=== PATIENT | male | born 1940 | race Caucasian/White ===

== ENCOUNTER 2017-08-03 20:47 | Emergency (ER) | payer OTHER, MEDICARE ==
[~2017-08-03] VITALS: Ht 180.3 cm; Wt 81.6 kg
[~2017-08-03 20:47] MED LIST: AMANTADINE HCL100 M1 PO; ANT12.5 PO; ASA PO; ASPIRIN EC325 M1 PO; CELEXA10 MG PO; CYMBALTA30 M1 PO; DUR75P TOP; FENTANYL 50 MCG/ML; FLO4 PO; FLOMAX0.4 MG PO; GABAPENTIN100 M2 PO; METHADONE10 M1 PO; MIDODRINE HCL2.5 M1 PO; MORPHINE SULFAT15 MG; NEXIUM40 MG PO; TRAZODONE50 M1 PO; ZOS3PM IV
[2017-08-03 20:57] VITALS: Ht 180.3 cm; Wt 81.6 kg
[2017-08-03 22:26] LABS: BASOPHIL % 0.5 % (0-2); PLATELET COUNT 204 x10^3mcL (130-400); RED CELL DISTRIBUTION WIDTH 13.9 % (11.5-14.5)
[2017-08-03 22:53] LABS: CALCIUM 8.3 mg/dL (8.5-10.1); CARBON DIOXIDE 24.7 mmol/L (21-32); CHLORIDE SERUM 100 mmol/L (98-107); CREATININE SERUM 1.3 mg/dL (0.7-1.3); GLUCOSE SERUM 136 mg/dL (74-106); POTASSIUM SERUM 3.9 mmol/L (3.5-5.1); SODIUM SERUM 133 mmol/L (136-145)
[2017-08-03 22:58] LABS: T3 TOTAL 0.95 ng/mL
[2017-08-03 23:00] LABS: ALKALINE PHOSPHATASE 71 U/L (46-116); ALT/SGPT 18 U/L (16-63); AST/SGOT 9 U/L (15-37); BILIRUBIN TOTAL 0.3 mg/dL (0.20-1.00); CHOLESTEROL 151 mg/dL (<200); HDL CHOLESTEROL 42 mg/dL (40-60)
[2017-08-03 23:02] LABS: ALBUMIN 3.1 g/dL (3.4-5.0); TOTAL PROTEIN, SERUM 6.1 g/dL (6.4-8.2)
[2017-08-03 23:07] LABS: FREE T4 1.18 ng/dL (0.76-1.46); FREE THYROXINE INDEX 2.4 ug/dL (1.4-4.5); T4(THYROXINE) 6.6 ug/dL (4.7-13.3)
[2017-08-04 01:08] VITALS: BP 117/74
== END 2017-08-04 01:08 | disposition home or self-care (01) ==
LOC: ED 20:47
PROVIDERS: Emergency Medicine
DX: I95.9 Hypotension, unspecified (principal); G62.9 Polyneuropathy, unspecified; J45.909 Unspecified asthma, uncomplicated; Z88.2 Allergy status to sulfonamides; Z95.5 Presence of coronary angioplasty implant and graft; Z88.5 Allergy status to narcotic agent; T40.605A Adverse effect of unspecified narcotics, initial encounter; Y92.89 Other specified places as the place of occurrence of the external cause
CPT/HCPCS: 83880; 84439; J7030; Q0092

== ENCOUNTER 2017-11-14 20:55 | Inpatient (IN) | payer OTHER ==
[~2017-11-14] VITALS: Ht 175.3 cm; Wt 79.9 kg
[2017-11-14 20:58] VITALS: Ht 175.3 cm; Wt 79.9 kg
[2017-11-14 21:49] LABS: BASOPHIL % 0.5 % (0-2); PLATELET COUNT 202 x10^3mcL (130-400); RED CELL DISTRIBUTION WIDTH 14.2 % (11.5-14.5)
[2017-11-14 21:53] LABS: CALCIUM 8.2 mg/dL (8.5-10.1); CARBON DIOXIDE 26.1 mmol/L (21-32); CHLORIDE SERUM 100 mmol/L (98-107); CREATININE SERUM 0.9 mg/dL (0.7-1.3); GLUCOSE SERUM 128 mg/dL (74-106); POTASSIUM SERUM 4.2 mmol/L (3.5-5.1); SODIUM SERUM 130 mmol/L (136-145)
[2017-11-14 21:57] LABS: ALBUMIN 3.1 g/dL (3.4-5.0); ALKALINE PHOSPHATASE 134 U/L (46-116); ALT/SGPT 20 U/L (16-63); AST/SGOT 8 U/L (15-37); BILIRUBIN TOTAL 0.4 mg/dL (0.20-1.00); CHOLESTEROL 171 mg/dL (<200); TOTAL PROTEIN, SERUM 5.8 g/dL (6.4-8.2)
[2017-11-14] MEDS ORDERED: ZESTRIL20 MG PO (22:50)
[2017-11-14 23:57] VITALS: BP 121/78
[2017-11-15 00:42] LABS: microscopic required? NO
[2017-11-15 00:56] LABS: urine erythrocyte NEGATIVE (NEGATIVE)
[2017-11-15 01:54] LABS: CHOLESTEROL/HDL RATIO 3.7; MAGNESIUM 1.7 mg/dL (1.8-2.4); PHOSPHOROUS 3.7 mg/dL (2.5-4.9)
[2017-11-15 02:06] LABS: FREE T4 1.09 ng/dL (0.76-1.46); FREE THYROXINE INDEX 2.7 ug/dL (1.4-4.5); T4(THYROXINE) 7.4 ug/dL (4.7-13.3)
[2017-11-15 02:58] LABS: T3 TOTAL 0.77 ng/mL
[2017-11-15 06:53] LABS: AMPHETAMINE QUAL UR NONE DETECTED (NEG <=1000)
[2017-11-15] MEDS ORDERED: EPZICOM1 TAB (10:56)
[2017-11-15] MEDS ORDERED: AZOPT10 ML OU (10:56)
[2017-11-15 11:16] VITALS: BP 153/83
[2017-11-15 14:40] VITALS: BP 133/77
[2017-11-15 18:58] VITALS: BP 152/78
[2017-11-15 22:31] VITALS: BP 134/75
[2017-11-16 06:04] VITALS: BP 152/88
[2017-11-16 07:14] LABS: CALCIUM 8.6 mg/dL (8.5-10.1); CHLORIDE SERUM 99 mmol/L (98-107); CREATININE SERUM 0.7 mg/dL (0.7-1.3); GLUCOSE SERUM 89 mg/dL (74-106); MAGNESIUM 1.8 mg/dL (1.8-2.4); POTASSIUM SERUM 4.2 mmol/L (3.5-5.1); SODIUM SERUM 134 mmol/L (136-145)
[2017-11-16 07:38] LABS: BASOPHIL % 0.4 % (0-2); PLATELET COUNT 187 x10^3mcL (130-400); RED CELL DISTRIBUTION WIDTH 14.2 % (11.5-14.5)
[2017-11-16 09:43] VITALS: BP 120/72; BP 137/88
[2017-11-16 13:39] VITALS: BP 137/88
== END 2017-11-16 14:06 | disposition home health service (06) | DRG 312 ==
LOC: ED 20:55 → DU 22:58
PROVIDERS: Emergency Medicine; Student in an Organized Health Care Education/Training Program
DX: I95.1 Orthostatic hypotension (principal); E87.1 Hypo-osmolality and hyponatremia; E44.0 Moderate protein-calorie malnutrition; E83.42 Hypomagnesemia; N40.0 Benign prostatic hyperplasia without lower urinary tract symptoms; I25.10 Atherosclerotic heart disease of native coronary artery without angina pectoris; I10 Essential (primary) hypertension; E78.5 Hyperlipidemia, unspecified; F32.9 Major depressive disorder, single episode, unspecified; Z68.25 Body mass index [BMI] 25.0-25.9, adult; Z95.5 Presence of coronary angioplasty implant and graft; Z96.643 Presence of artificial hip joint, bilateral
CPT/HCPCS: 83880; 84439; 97110-GP; G0480; J7030; Q0092

== ENCOUNTER 2018-03-21 09:35 | Emergency (ER) | payer OTHER, MEDICARE ==
[~2018-03-21] VITALS: Ht 172.7 cm; Wt 81.6 kg
[~2018-03-21 09:35] MED LIST changes: +AZOPT10 ML OU; +EPZICOM1 TAB; +ZESTRIL20 MG PO
[2018-03-21 09:52] VITALS: Ht 172.7 cm; Wt 81.6 kg
[2018-03-21 10:55] LABS: BASOPHIL % 0.7 % (0-2); PLATELET COUNT 220 x10^3mcL (130-400); RED CELL DISTRIBUTION WIDTH 13.9 % (11.5-14.5)
[2018-03-21 11:05] LABS: CALCIUM 9.1 mg/dL (8.5-10.1); CARBON DIOXIDE 27.2 mmol/L (21-32); CHLORIDE SERUM 100 mmol/L (98-107); GLUCOSE SERUM 112 mg/dL (74-106); SODIUM SERUM 135 mmol/L (136-145)
[2018-03-21 11:10] LABS: ALBUMIN 3.5 g/dL (3.4-5.0); ALKALINE PHOSPHATASE 92 U/L (46-116); ALT/SGPT 22 U/L (16-63); AST/SGOT 10 U/L (15-37); BILIRUBIN TOTAL 0.6 mg/dL (0.20-1.00); CHOLESTEROL 186 mg/dL (<200); HDL CHOLESTEROL 50 mg/dL (40-60); TOTAL PROTEIN, SERUM 6.4 g/dL (6.4-8.2)
[2018-03-21 13:16] VITALS: BP 130/72
== END 2018-03-21 13:16 | disposition home or self-care (01) ==
LOC: ED 09:35
PROVIDERS: Emergency Medicine
DX: R55 Syncope and collapse (principal); R53.1 Weakness; R11.2 Nausea with vomiting, unspecified; R42 Dizziness and giddiness; Z88.2 Allergy status to sulfonamides; Z88.5 Allergy status to narcotic agent
CPT/HCPCS: J7030; Q0092

== ENCOUNTER 2018-04-26 05:30 | Inpatient (IN) | payer OTHER, MEDICARE ==
[~2018-04-26] VITALS: Ht 170.2 cm; Wt 77.3 kg
[2018-04-26 06:15] LABS: CALCIUM 8.8 mg/dL (8.5-10.1); CHLORIDE SERUM 101 mmol/L (98-107); CREATININE SERUM 0.9 mg/dL (0.7-1.3); GLUCOSE SERUM 101 mg/dL (74-106); POTASSIUM SERUM 3.8 mmol/L (3.5-5.1); SODIUM SERUM 134 mmol/L (136-145)
[2018-04-26 06:17] LABS: BASOPHIL % 0.7 % (0-2); PLATELET COUNT 222 x10^3mcL (130-400); RED CELL DISTRIBUTION WIDTH 12.5 % (11.5-14.5)
[2018-04-26 06:29] LABS: UA SPECIFIC GRAVITY 1.025 (1.005-1.035); microscopic required? YES; urine erythrocyte 3+ (NEGATIVE)
[2018-04-26 06:33] LABS: ALBUMIN 3.5 g/dL (3.4-5.0); ALKALINE PHOSPHATASE 92 U/L (46-116); ALT/SGPT 24 U/L (16-63); AST/SGOT 15 U/L (15-37); BILIRUBIN TOTAL 0.57 mg/dL (0.20-1.00); LIPASE 195 IU/L (73-393); TOTAL PROTEIN, SERUM 7.2 g/dL (6.4-8.2)
[2018-04-26 13:30] LABS: T3 TOTAL 1.32 ng/mL
[2018-04-26 13:35] LABS: CHOLESTEROL/HDL RATIO 3.3; MAGNESIUM 1.7 mg/dL (1.8-2.4); PHOSPHOROUS 3.7 mg/dL (2.5-4.9)
[2018-04-26 13:46] LABS: FREE T4 1.19 ng/dL (0.76-1.46); FREE THYROXINE INDEX 3.2 ug/dL (1.4-4.5); T4(THYROXINE) 9.1 ug/dL (4.7-13.3)
[2018-04-26 14:23] VITALS: BP 168/88
[2018-04-26 17:33] VITALS: BP 114/69; BP 120/72
[2018-04-26 21:22] VITALS: BP 126/70
[2018-04-27 05:04] VITALS: BP 149/80
[2018-04-27 06:10] LABS: BASOPHIL % 0.8 % (0-2); PLATELET COUNT 189 x10^3mcL (130-400); RED CELL DISTRIBUTION WIDTH 13.4 % (11.5-14.5)
[2018-04-27 06:20] LABS: CALCIUM 8.5 mg/dL (8.5-10.1); CARBON DIOXIDE 24.2 mmol/L (21-32); CHLORIDE SERUM 106 mmol/L (98-107); CREATININE SERUM 0.9 mg/dL (0.7-1.3); GLUCOSE SERUM 89 mg/dL (74-106); POTASSIUM SERUM 4.2 mmol/L (3.5-5.1); SODIUM SERUM 139 mmol/L (136-145)
[2018-04-27 09:08] VITALS: BP 142/96
[2018-04-27 17:08] VITALS: BP 117/67
[2018-04-27 21:21] VITALS: BP 111/63
[2018-04-28 05:56] VITALS: BP 151/79
[2018-04-28 06:37] LABS: CALCIUM 8.2 mg/dL (8.5-10.1); CARBON DIOXIDE 23.4 mmol/L (21-32); CHLORIDE SERUM 106 mmol/L (98-107); CREATININE SERUM 0.7 mg/dL (0.7-1.3); GLUCOSE SERUM 82 mg/dL (74-106); POTASSIUM SERUM 3.9 mmol/L (3.5-5.1); SODIUM SERUM 139 mmol/L (136-145)
[2018-04-28 06:38] LABS: BASOPHIL % 0.7 % (0-2); PLATELET COUNT 177 x10^3mcL (130-400); RED CELL DISTRIBUTION WIDTH 13.3 % (11.5-14.5)
[2018-04-28 09:48] VITALS: BP 142/66
[2018-04-28 17:50] VITALS: BP 115/72
[2018-04-28 20:47] VITALS: BP 133/78
[2018-04-29 05:29] VITALS: BP 139/82
[2018-04-29 06:13] LABS: BASOPHIL % 0.7 % (0-2); PLATELET COUNT 190 x10^3mcL (130-400); RED CELL DISTRIBUTION WIDTH 13.3 % (11.5-14.5)
[2018-04-29 06:14] LABS: CALCIUM 8.5 mg/dL (8.5-10.1); CARBON DIOXIDE 26.5 mmol/L (21-32); CHLORIDE SERUM 103 mmol/L (98-107); CREATININE SERUM 0.9 mg/dL (0.7-1.3); GLUCOSE SERUM 87 mg/dL (74-106); POTASSIUM SERUM 3.8 mmol/L (3.5-5.1); SODIUM SERUM 138 mmol/L (136-145)
[2018-04-29 10:03] VITALS: BP 115/62
[2018-04-29] MEDS ORDERED: MAC100 PO (11:40)
== END 2018-04-29 14:25 | disposition home or self-care (01) | DRG 693 ==
LOC: ED 05:30 → MU 12:55
PROVIDERS: Emergency Medicine; Family Medicine; Internal Medicine
DX: N20.1 Calculus of ureter (principal); N17.0 Acute kidney failure with tubular necrosis; N39.0 Urinary tract infection, site not specified; K59.09 Other constipation; N40.0 Benign prostatic hyperplasia without lower urinary tract symptoms; I25.10 Atherosclerotic heart disease of native coronary artery without angina pectoris; I50.9 Heart failure, unspecified; G60.9 Hereditary and idiopathic neuropathy, unspecified; R80.9 Proteinuria, unspecified; F41.8 Other specified anxiety disorders; Z96.651 Presence of right artificial knee joint; Z95.5 Presence of coronary angioplasty implant and graft
CPT/HCPCS: 83880; 84439; 94150; J0696; J1940; J2270; J2405; J7030; J7620; Q0092; Q0163